=== PATIENT | male | born 1990 | race Caucasian/White ===

== ENCOUNTER 2020-04-20 13:29 | Emergency (ER) | payer OTHER ==
[~2020-04-20] VITALS: Ht 182.9 cm; Wt 91.6 kg
[2020-04-20] MEDS ORDERED: SYMTUZA 800-151 EACH PO (13:37)
[2020-04-20] MEDS ORDERED: MEDROLDOSEPACK PO (14:10)
[2020-04-20 14:39] VITALS: BP 135/89
--- NOTE | 2020-04-21 18:25 | EKG ---
[place] [address] ELECTROCARDIOGRAM REPORT Name: JUANY TAYLOR Room: [facility]#: [id number] Admission: 04/20/20 Attend Phys: Discharge: 04/20/20 Date of : 86 Date of Service: 04/20/20 1340 Report #: [id number] THIS REPORT FOR: //name// [facility] ED Test Date: 2020-04-20 Test Time: 13:40:08 Pat Name: JUANY TAYLOR Department: Room: Gender: Object Oriented Developer: : 1990 Requested By: Irene Vargas Order Number: [id number] Philomena MD: Jones Pan Measurements Intervals [place] Rate: 74 P: 60 UT: 189 QRS: 74 QRSD: 101 T: 47 QT: 383 QTc: 425 Interpretive Statements Sinus rhythm ST elev, probable normal early repol pattern No previous ECG available for comparison Electronically Signed On 04-21-2020 18:25:12 CDT by Jones Pan [email or web address] <ELECTRONICALLY SIGNED> By: Jones Pan MD, [facility] 04/21/20 1825 D: [id number] Jones Pan MD, FACC /EPI
== END 2020-04-20 14:39 | disposition home or self-care (01) ==
LOC: M.ERS 13:29
DX: G51.0 Bell's palsy (principal); Z88.1 Allergy status to other antibiotic agents; Z86.73 Personal history of transient ischemic attack (TIA), and cerebral infarction without residual deficits; Z79.899 Other long term (current) drug therapy